=== PATIENT | female | born 1995 | race Hispanic/Latino ===

== ENCOUNTER 2019-10-11 01:17 | Emergency (ER) | payer OTHER ==
[2019-10-11] MEDS ORDERED: ACETAMINOPHEN EXTRA STRENGTH 500 MG TABLET ONE (01:26)
== END 2019-10-11 03:04 | disposition home or self-care (01) ==
LOC: EDH 01:17
DX: S82.65XB Nondisplaced fracture of lateral malleolus of left fibula, initial encounter for open fracture type I or II (principal); J45.909 Unspecified asthma, uncomplicated; X58.XXXA Exposure to other specified factors, initial encounter; Y93.51 Activity, roller skating (inline) and skateboarding; Y92.331 Roller skating rink as the place of occurrence of the external cause; Y99.8 Other external cause status
CPT/HCPCS: 29515; 73610